=== PATIENT | female | born 1965 | race Caucasian/White ===

== ENCOUNTER 2019-07-03 16:02 | Emergency (ER) | payer MEDICAID ==
[~2019-07-03] VITALS: Ht 152.4 cm; Wt 57.6 kg
[2019-07-03 16:08] VITALS: BP 140/81
--- NOTE | 2019-07-03 16:16 | NUR ---
AMB TO BED 05
--- NOTE | 2019-07-03 16:26 | NUR ---
54 YO FEMALE CO OF HEADACHE FOR 3M. PAIN IS THROBBING AND PT IS LIGHT AND SOUND SENSITIVE. NO N/V/D. CURRENT PAIN IS 8/10. NO MED HX AND NO RX MEDS. PT IS LAYING IN BED WITH SIDE 1X UP.
[2019-07-03] MEDS ORDERED: PROCHLORPERAZINE 10 MG/2 ML VIAL IM ONE (16:30)
[2019-07-03] MEDS ORDERED: ACETAMINOPHEN EXTRA STRENGTH 500 MG TAB PO ONE (16:30)
[2019-07-03 17:23] VITALS: BP 125/76
== END 2019-07-03 17:26 | disposition home or self-care (01) ==
LOC: MED 16:02
DX: R51 Headache (principal); F17.210 Nicotine dependence, cigarettes, uncomplicated
CPT/HCPCS: 96372; 99283; J0780